=== PATIENT | male | born 1965 | race Caucasian/White ===

== ENCOUNTER 2023-11-06 13:05 | Inpatient (IN) | payer OTHER ==
[~2023-11-06] VITALS: Ht 188 cm; Wt 154.0 kg
[2023-11-06] MEDS ORDERED: BACTRIM DS TAB1 EACH PO (13:27)
[2023-11-06] MEDS ORDERED: ELIQUIS5 MG PO (13:28)
[2023-11-06] MEDS ORDERED: AMOX TR-K CLV1 EAC1 PO (13:28)
[2023-11-06] MEDS ORDERED: METFORMIN HCL1000 M1 PO (13:28)
[2023-11-06] MEDS ORDERED: TOPROL XL50 MG PO (13:30)
[2023-11-06] MEDS ORDERED: ZESTRIL20 MG PO (13:30)
[2023-11-06] MEDS ORDERED: LIPITOR40 MG PO (13:30)
[2023-11-06] MEDS ORDERED: LEVOTHYROXINE50 MC1 PO (13:31)
[2023-11-06 14:19] LABS: HEMATOCRIT 40.1 % (35.0-50.0); HEMOGLOBIN 13.6 g/dL (12.0-18.0); MCH 30.2 (27-36); MCHC 33.9 g/dl (30-36); MCV 89.1 fl (81-99); PLATELET COUNT 242 K/uL (140-440)
[2023-11-06 14:33] LABS: BANDS, MANUAL DIFF 1; BASOPHILS, MANUAL DIFF 1; LYMPHOCYTES, MANUAL DIFF 5; MONOCYTES, MANUAL DIFF 5; NEUTROPHILS, MANUAL DIFF 88
[2023-11-06 14:38] LABS: ALBUMIN 2.5 g/dL (3.4-5.0); ALBUMIN/GLOBULIN RATIO 0.47 (1.1-2.4); ANION GAP 11.1 (7-21); BILIRUBIN, TOTAL 0.5 ng/dL (0.2-1.0); BUN/CREATININE RATIO 18.1 (6.0-28.6); CALCIUM 9.3 mg/dL (8.5-10.1); CREATININE, SERUM 1.16 mg/dL (0.70-1.30); POTASSIUM 3.1 mmol/L (3.5-5.1); PROTEIN, TOTAL 7.8 g/dL (6.4-8.2)
[2023-11-06 14:40] LABS: LACTIC ACID, BLOOD 1.6 mmol/L (0.4-2.0)
--- NOTE | 2023-11-06 16:19 | NUR ---
PT ARRIVED FROM ER BY STRETCHER, PT ABLE TO STAND AND TRANSFER SELF TO BE. PT REPORTS LEFT FOOT IS VERY PAINFUL WITH ACTIVITY/AMBULATION. PT BMAT LEVEL 3 STAND BY ASSIST FOR LINE AND TUBE MAGEMENT. PT ALERT AND OREITNED TO ALL. PT REPORTS 2/10 PAIN IN LEFT FOOT THAT INCREASES WITH ACTIVITY AND "OCCATIONAL ZINGS." SEE MAR FOR MEDICATION GIVEN. IV WNL, NO S/S OF PHLEBITIS PRESENT. IV FLUIDS STARTED (SEE MAR). LUNG SOUNDS CLEAR. HEART TONES REGULAR. 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 PT DENIES CHEST PAIN OR PRESSURE AT THIS TIME. LEFT LOWER EXTREMITY WARM TO TOUCH AND RED WITH REDNESS OUTLINE. REDNESS REMAINS WITHIN OUTLINESD AREA AT THIS TIME. LEFT FOOT SHOWS +2 PITTING EDEMA. LEG VERY PAINFUL WITH EVEN THE SLIGHTEST TOUCH. TWO LARGE BLOOD BLISTERS SEEN IN LATERAL PART OF TOES, PHOTOGRAPHS TAKEN. PT IS UNABLE TO IDENTIFY TOES THAT ARE TOUCHED BUT IS ABLE TO IDENTIFY BOTTOM OF FOOT WHEN TOUCHED. PEDIAL AND TIBIAL PULSES FOUND WITH DOPPLER TO LEFT SIDE. RIGHT PEDIAL AND TIBIAL PULSES WNL, CAN BE FELT. CAPILLARY REFILL 4 SECONDS TO BILATERA FEET. SMALL AMOUNTS OF SEROUS ANGUINOUS FLUID LEAKING FROM BLISTERS. PT REPORTS HIS LAST BOWEL MOVEMENT WAS 4-5 DAYS AGO. PT REQUESTS STOOL SOFTENERS, ORDERED AND GIVEN (SEE MAR). PT REPROTS FEELING CHILLY, WARM BLANKETS PROVIDED. S/S OF INFECTION REVEIWED WITH PT. PT DENIES ADDITIONAL REQUESTS OR COMPLAINTS. ORAL HYDRATION ENCROUAGED. CALL LIGHT WITHIN REACH. BED RAILS UP.
[2023-11-06 16:24] VITALS: BP 154/107
--- NOTE | 2023-11-06 17:43 | NUR ---
PTS TEMPERATURE FOUND TO BE 100.6. DR WINKLER CALLED AND UPDATED. NO NEW ORDERS AT THIS TIME.
[2023-11-06 17:57] VITALS: BP 146/73
--- NOTE | 2023-11-06 18:33 | NUR ---
THIS RN TO ROOM TO REASSESS TEMPERATURE. TEMPERATURE NOW 98.9. PT REPORTS HE IS STARTING TO "FEEL HOT." PT REPROTS 2/10 PAIN IN LEFT FOOT. PT DENIES NEED FOR PAIN MEDICATION STATING "I'M NOT GETTING THOSE TWINGES RIGHT NOW." ICE WATER REFILLED. CALL LIGHT WITHIN REACH. PO HYDRATION ENCOURAGED. NO ADDITIONAL REQUESTS OR COMPLAINTS AT THIS TIME.
--- NOTE | 2023-11-06 19:15 | NUR ---
REPORT RECIEVED FROM DAPHNE GALINDO. BOARD UPDATED. pt RESTING IN THE BED. NO NEEDS AT THIS THIS TIME. CALL LIGHT WITHIN REACH.
--- NOTE | 2023-11-06 20:13 | NUR ---
PT UP TO BR TO WITH FWW AND SBA TO VOID 350 ML CONCENTRATED URINE. GAIT STEADY. BACK TO BED, RENE WELL. REPORTS PAIN TOLERABLE WITH ACTIVITY. LLE ELEVATED ON PILLOWS. NO FURTHER NEEDS.
[2023-11-06 21:28] VITALS: BP 138/71
--- NOTE | 2023-11-06 21:30 | NUR ---
ASSESSMENT AND VITAL SIGNS DONE. IV SITE ASSESSED, WNL. PEDAL PULSES FOUND VIA DOPLER. SCHEDULED MEDICATION ADMINISTERED, SEE JAN. TEMP ELEVATED, DR. WINKLER CALLED. NEW ORDERS PLACED FOR PRN MOTRIN AND IV ABX X2. pt K+ 3.1, MD WINKLER PLACED ORDER FOR IV K+ REPLACEMENT, SEE JAN.
[2023-11-07 00:44] VITALS: BP 139/84
--- NOTE | 2023-11-07 02:19 | NUR ---
pt RESTING IN BED UP TO BR. SBA WITH FWW. pt BACK TO BED. CALL LIGHT WITHIN REACH.
--- NOTE | 2023-11-07 04:35 | NUR ---
IV PUMP ALARMING. ISSUE RESOLVED. COFFEE PROVIDED PER REQUEST. NO FURTHER NEEDS.
[2023-11-07 05:13] VITALS: BP 133/81
--- NOTE | 2023-11-07 05:15 | NUR ---
ASSESSMENT AND VITAL SIGNS DONE. REDNESS WITHIN LINES. SCHEDULED MEDICATION ADMINISTERED. CALL LIGHT WITHIN REACH. BLISTERS INTACT. PATIENT DENIES ANY NEEDS AT THIS TIME.
[2023-11-07 05:29] LABS: BASOPHILS 0.8 % (0-2); EOSINOPHILS 2.5 % (0-6); HEMOGLOBIN 12.5 g/dL (12.0-18.0); LYMPHOCYTES 11.6 % (24-44); MCHC 33.9 g/dl (30-36); MCV 88.6 fl (81-99); MONOCYTES 4.7 % (0-12); NEUTROPHILS 80.4 % (39-80); PLATELET COUNT 230 K/uL (140-440); RBC 4.17 M/ul (4.3-5.7); RDW 14.9 (10.5-15.0)
[2023-11-07 05:42] LABS: ALBUMIN 2.1 g/dL (3.4-5.0); ALBUMIN/GLOBULIN RATIO 0.43 (1.1-2.4); ANION GAP 13.3 (7-21); BILIRUBIN, TOTAL 0.5 ng/dL (0.2-1.0); BUN/CREATININE RATIO 21.34 (6.0-28.6); CALCIUM 8.6 mg/dL (8.5-10.1); CREATININE, SERUM 0.89 mg/dL (0.70-1.30); MAGNESIUM 1.7 mg/dL (1.8-2.4); POTASSIUM 3.3 mmol/L (3.5-5.1)
--- NOTE | 2023-11-07 06:30 | NUR ---
SBA PATIENT IS BACK FROM BATHROOM. PATIENT'S FOOT BLISTER OPENED AND HAD BLOOD SPOTS ON THE FLOOR AND WIPED WITH HASSAN WIPES BY THIS HOURLY SIGN LANGUAGE INTERPRETER. DENIES FURTHER NEEDS AT THIS TIME. PRIMARY RN NOTIFIED.
--- NOTE | 2023-11-07 06:50 | NUR ---
MEDICAL APPLIANCE MAKER REPORTS TO THIS RN THAT PT WAS UP TO RESTROOM AND FOOT WOUND STARTED LEAKING. THIS RN TO ROOM. SMALL CALLUS ON LATERAL PAD OF LEFT FOOT LOOSE AND LEAKING YELLOW READ FLUID. PT CURRENTLY RESTING ON RIGHT SIDE IN BED. FOOT PLACED ON A PILLOW WITH CHUX UNDERNEATH. PT REPORTS PAIN REMAINS WELL CONTROLLED AND DENIES NEED FOR PAIN MEDICATION. NOTED IN DR CHAUDHARI NOTED THAT HE WOULD LIKE A PODIATRY CONSULTATION. ORDER PLACED. CHARGE NURSE KARINA. PT DENIES ADDITIONAL REQUESTS OR COMPLAINTS. CALL LIGHT WITHIN REACH. BED RAILS UP. PT REPORTS HE WOULD LIKE TO GO BACK TO SLEEP.
--- NOTE | 2023-11-07 07:40 | NUR ---
RECIEVED REPORT FROM JOSIE REYES. ASSUMING CARE OF PT WITH JOSIE SERNA.
--- NOTE | 2023-11-07 07:45 | NUR ---
This BIOFUELS PRODUCTION ASSOCIATE assumed care for this PT from mini shifter BIOFUELS PRODUCTION ASSOCIATE. BG obtained. PT denies any assistance at this time.
--- NOTE | 2023-11-07 07:59 | NUR ---
REPORT RECEIVED FROM JOSIE RAUSCH. PT RESTING IN BED ON LEFT SIDE WITH EYES CLOSED. RESPIRATIONS EVEN AND UNLABORED. PT ALLOWED TO REST. CALL LIGHT WITHIN REACH. BED RAILS UP. ANASTACIA GALINDO ASSUMING CARE OF PT WITH ASSISTANCE FROM THIS RN.
--- NOTE | 2023-11-07 08:10 | NUR ---
CALL TO PODIATRY TO LET THEM KNOW THAT PATIENT HAS A CONSULT FOR DIABETIC FOOT INFECTION.
[2023-11-07] MEDS ORDERED: AMOX TR-K CLV1 EAC1 PO (09:20)
[2023-11-07] MEDS ORDERED: TRAMADOL HCL50 MG PO (09:21)
[2023-11-07] MEDS ORDERED: SULFAMETHOXAZO1 EAC1 PO (09:21)
[2023-11-07] MEDS ORDERED: LEVOTHYROXINE50 MCG PO (09:22)
[2023-11-07] MEDS ORDERED: METFORMIN HCL500 M1 PO (09:28)
[2023-11-07] MEDS ORDERED: LISINOPRIL-HCT1 EACH PO (09:28)
[2023-11-07] MEDS ORDERED: METOPROLOL SUCC25 MG PO (09:29)
--- NOTE | 2023-11-07 09:45 | NUR ---
PT SITTING UP IN BED, HAS FINISHED BREAKFAST. PT STATES PAIN IS 4.5/10 IN HIS FOOT AT THIS TIME, REQUESTS PAIN MEDICATION, GIVEN. DOPPLER USED FOR FINDING PULSE IN LLE. EDEMA IN LLE REMAINS 2+ WITH REDNESS. PT UNABLE TO IDENTIFY LOCATION OF TOUCH ON LEFT FOOT/TOES. OPEN BLISTER ON BOTTOM OF LEFT FOOT, DRAINING SCANT AMOUNT OF SEROSANGUINOUS FLUID. BLISTER ON TOP OF LEFT FOOT INTACT, DARK RED FLUID PRESENT INSIDE. REDNESS ON LLE RECEDING FROM MARKED AREA. PT STATES HE HAS BEEN "CONSTIPATED" FOR A "FEW DAYS", [place] AND SENNA GIVEN. PT TOLERATING 60G CARB DIET, STATES HE HAS HAD "NOT VERY MUCH OF AN APPETITE SOMETIMES" FOR THE LAST "COUPLE MONTHS". PT STATES NO FURTHER NEEDS AT THIS TIME, CALL LIGHT WITHIN REACH, BED RAILS UP.
[2023-11-07 10:04] VITALS: BP 142/71
--- NOTE | 2023-11-07 10:35 | NUR ---
THIS RN TO ROOM TO CHECK ON PT. PT RESTING IN BED, REPORTS 3/10 PAIN IN LEFT FOOT. PT DENIES NEED FOR ADDITIONAL PAIN MEDICATION. PT WATCHING VIDEOS ON PHONE. NO ADDITIONAL REQUESTS OR COMPLAINTS. CALL LIGHT WITHIN REACH. BED RAILSUP.
--- NOTE | 2023-11-07 11:27 | NUR ---
PT USES CALL LIGHT, IV PUMP ALARMING, PT STATES NEED TO USE RESTROOM. EDUCATION ON NOT WEIGHT BEARING ON LLE AND USING WALKER, PT REFUSES TO USE WALKER, STATES "I WILL TRY TO KEEP WEIGHT OFF OF IT". PT UP TO RESTROOM, DARK RED DRAINAGE WITH ODOR FROM FOOT WHILE PT WALKS. PT BACK TO BED AFTER RESTROOM, REFUSES TO GET UP TO CHAIR AT THIS TIME. PT STATES NO FURTHER NEEDS AT THIS TIME, CALL LIGHT WITHIN REACH, BED RAILS UP.
--- NOTE | 2023-11-07 12:12 | NUR ---
INTO SEE PATIENT, PATIENT AWAKE WATCHING TV. PATIENT STATES HE LIVES IN AN APARTMENT WITH HIS AND TWO SON. PATIENT DOES HAVE 10-12 STEPS LEADING INTO HIS APARTMENT, BUT BELIEVES HE WILL BE ABLE TO MANAGE AT DISCHARGE. PATIENT DOES NOT REQUIRE ANY DME AND DOES NOT HAVE ANY CONCERNS ABOUT RETURNING HOME. PATIENT DECLINES FINANCIAL NEEDS. DEMOGRAPHIC INFORMATION REVIEWED. PATIENT MAILING ADDRESS AND PCP UPDATED, EMAIL SENT TO ADMITTING. ADVISED PATIENT CASE MANAGEMENT WILL CONTINUE TO VISIT HIM DURING HIS STAY.
--- NOTE | 2023-11-07 12:25 | NUR ---
PT SITTING UP IN BED EATING LUNCH. PT STATES PAIN IS 4/10 AND WORSENING, REQUESTS PRN PAIN MEDICATION, GIVEN. PT REQUESTS ADDITIONAL MILK, GIVEN. CALL LIGHT WITHIN REACH, BED RAILS UP.
[2023-11-07 13:28] VITALS: BP 151/84
--- NOTE | 2023-11-07 13:40 | NUR ---
THIS RN TO ROOM TO CHECK ON PT. PT RESTING IN BED, PT REPORTS 3/10 PAIN AND DENIES NEED FOR PAIN MEDICAITON NO ADDITIONAL REQUESTS OR COMPLAINTS. CALL ADRI CAPUTO.
--- NOTE | 2023-11-07 14:31 | NUR ---
UR NOTE MCG CELLULITIS (ISC) INPATIENT 11/06/23 MET CLINICAL INDICATIONS FOR ADMISSION TO INPATIENT CARE GL DAY 1
--- NOTE | 2023-11-07 14:36 | NUR ---
PT CALL LIGHT ON. PT REQUESTS A MICHELLE SALINAS AND "SOMETHING FOR PAIN." PT REPORTS 3/10 PAIN IN LEFT FOOT AT THIS TIME, SEE MAR FOR MEDICATION GIVEN. PT VISITING WITH A FRIEND. IV ABX STARTED (SEE MAR). POTSSIUM INFUSION CONTINUES. 2ND ABX TO START AFTER FIRST COMPLETES. PT REQUESTS TO SHAVE, SHIFT BOSS TO BEDSIDE TO ASSIST PT WITH SHAVE. NO ADDITIONAL REQUESTS OR COMPLAINTS. ICE WATER REFILLED. CALL LIGHT WITHIN REACH. DIET 7-UP PROVIDED PER PT REQUEST. PTS PRIMARY RN UPDATED.
--- NOTE | 2023-11-07 14:44 | NUR ---
PT STATES PAIN IS 3/10, REQUESTS PAIN MEDICATION, GIVEN. REDNESS CONTINUES TO RECEED FROM MARKINGS ON LLE, PT CONTINUES TO NOT BE ABLE TO NAME WHICH TOES/PARTS OF FOOT ARE BEING TOUCH ON LEFT FOOT. DRAINAGE PRESENT FROM BLISTER ON TOP OF LEFT FOOT, DARK RED WITH ODOR. BLISTER ON LATERAL BOTTOM LEFT FOOT DRY. PT STATES NO FURTHER NEEDS AT THIS TIME, CALL LIGHT WITHIN REACH, BED RAILS UP, FAMILY AT THE BEDSIDE.
--- NOTE | 2023-11-07 15:55 | NUR ---
HOURLY ROUNDING: PT RESTING IN BED VISITING WITH FAMILY. IV ABX GIVEN. PT REQUESTS A NITCOTENE LYNNETTEE, PROVIDED. EDUCATION DONE WITH PT REGRADING HOW TO USE WALKER TO KEEP WEIGHT OFF OF HIS LEFT FOOT. PT VERBALIZES UNDERSTANDING AND STATES "I CAN DO THAT." PT REPORTS 6/10 PAIN STATING THAT PAIN IS WORSE BECUASE HE WAS JUST UP TO SHAVE AND HAD WEIGHT ON HIS FOOT. PT DENIES NEED FOR ADDITIONAL PAIN MEDICATION. NO ADDITIONAL REQUESTS OR COMPLAINTS. CALL LIGHT WITHIN REACH. BED RAILS UP.
--- NOTE | 2023-11-07 16:45 | NUR ---
PT HERE FOR DIABETIC FOOT INFECTION. PT AMBULATING TO RESTROOM WITH SBA AND LINE AND TUBE MANAGEMENT, EDUCATION ON NOT PUTTING WEIGHT ON LEFT FOOT AND ON USING THE FWW, PAIN REFUSES AND STATES "I WILL TRY TO NOT PUT WEIGHT ON IT". PT TOLERATING 60G CARB DIET WELL, STATES HE HAS HAD DECREASED APPETITE "FOR A COUPLE MONTHS". LLE PULSES FOUND WITH DOPPLER. BLISTER ON BOTTOM OF L FOOT DRY TODAY, BLISTER ON TOP OF L FOOT DRAINING DARK RED, ODOROUS FLUID THROUGHOUT SHIFT, INCREASED WITH ACITIVITY. REDNESS ON LEFT LOWER LEG RECEEDING FROM MARKINGS, L FOOT CONTINUES TO BE WARM, RED, AND LLE CONTINUES TO HAVE +2 PITTING EDEMA. PT REPORTS PAIN 3-6/10 THIS SHIFT, PRN PAIN MEDICATION GIVEN. PT HAS FAMILY VISIT THIS AFTERNOON. PT USES CALL LIGHT APPROPRIATELY. VOIDING QUANTITY SUFFICIENT.
--- NOTE | 2023-11-07 17:08 | NUR ---
PT SITTING UP IN BED VISITING WITH AND SON. PT STATES PAIN IS 5/10, STATES HE WOULD LIKE PRN PAIN MEDICATION THE NEXT TIME IT IS DUE. PT STATES NO FURTHER NEEDS AT THIS TIME, CALL LIGHT WITHIN REACH, BED RAILS UP.
--- NOTE | 2023-11-07 17:20 | NUR ---
DR PATIÑO TO BEDSIDE, PERFORMING ROUGH DEBRIEDMENT, APPLYING DRESSING. BLISTER OPENED, DARK BROWN/RED, ODOROUS DRAINAGE. DR PATIÑO STATES THERE IS " TISSUE" ON LATERAL SIDE OF LEFT FOOT, PROXIMAL TO FIFTH METATARSAL. ORDERS GIVEN FOR WOUND CULTURES, ENTERED, REPEAT BACK PERFORMED. PICTURES AND MEASUREMENTS OF WOUNDS TAKEN. DRESSING APPLIED, ORDERS FOR DRESSING CHANGES GIVEN BY DR PATIÑO, ENTERED, REPEAT BACK PERFORMED. PICTURES OF WOUNDS TAKEN, SEE COMPLEX WOUND ASSESSMENT. LLE ELEVATED ON PILLOW. PT STATES PAIN BECOMES NOT TOLERABLE AT 6-7/10 DURING WOUND DEBRIEDMENT, IV PAIN MEDICATION ORDERED, GIVEN, 0/10 POST DRESSING CHANGE. PT SITTING UP IN BED TO EAT DINNER, STATES NO FURTHER NEEDS AT THIS TIME, CALL LIGHT WITHIN REACH, BED RAILS UP.
--- NOTE | 2023-11-07 18:07 | NUR ---
PT SITTING UP IN BED FINISHING DINNER, STATES NO NEEDS AT THIS TIME, CALL LIGHT WITHIN REACH, BED RAILS UP. PT DENIES PAIN AT THIS TIME.
[2023-11-07 18:18] VITALS: BP 130/79
--- NOTE | 2023-11-07 18:41 | NUR ---
PT CALL LIGHT ON. PT REQUESTS A NICOTENE LOZANGE AND PAIN MEDICATION. SEE MAR FOR MEDICATION GIVEN. POST OP SHOE AT BEDSIDE. PT EDUCATION DONE REGARDING AMBULATION. PT VERBALIZES UNDERSTANDING. IMPORTANCE OF BLOOD SUGAR CONTROL ALSO REVIEWED WITH PT. PT STATES "ILL START WATCHING THOSE." PT DENIES ADDITIONAL REQUESTS OR COMPLAINTS. CALL LIGHT WITHIN REACH. BED RAILS UP.
--- NOTE | 2023-11-07 19:15 | NUR ---
REPORT RECIEVED FROM DAPHNE GALINDO AND ANASTACIA GALINDO. BOARD UPDATED. NO NEEDS AT THIS TIME. CALL LIGHT IN REACH.
--- NOTE | 2023-11-07 19:50 | NUR ---
DR. PATIÑO UPDATED LAB NOT ABLE TO RUN GRAM STAIN SWAB. TELEPHONE ORDERS VERIFIED WITH READBACK METHOD TO NOT DO AN ADDITIONAL SWAB AND TO WAIT FOR CULTURE AND SENSITIVITIES.
[2023-11-07 20:37] VITALS: BP 145/82
--- NOTE | 2023-11-07 20:53 | NUR ---
ASSESSMENT AND VITAL SIGNS DONE. CBG DONE. SS INSULIN ADMINISTERED. SCHEDULED MEDS ADMINISTERED, SEE MAR. pt UP TO USE URINAL, SBA/IND AT SIDE OF BED. pt C/O 04/30 PAIN/ PRN PAIN MEDS ADMINISTERED. REDNESS WITHIN BOARDERS. CALL LIGHT WITHIN REACH. NO OTHER NEEDS AT THIS TIME
--- NOTE | 2023-11-07 23:22 | NUR ---
IV ALARMING. pt RESTING IN THE BED. NO NEEDS AT THIS TIME. CALL LIGHT IN REACH. RLE COVERED WITH BANDAGE.
--- NOTE | 2023-11-08 00:46 | NUR ---
pt RESTING IN BED WITH EYES CLOSED. RESP OBSERVED, EVEN AND UNLABORED. CALL LIGHT IN REACH. DRESSING CDI
--- NOTE | 2023-11-08 02:18 | NUR ---
IV ABX INFUSING, SEE MAR. pt DENIES PAIN AT THIS TIME. RLE DRESSING CDI. CALL LIGHT IN REACH. pt REQUESTS COFFEE. NO OTHER NEEDS AT THIS TIME.
--- NOTE | 2023-11-08 04:12 | NUR ---
PATIENT CALLED. BED RAIL DOWN. PATIENT USED THE URINAL. EMPTIED 550ML DARK TEA COLOR URINE. ROOM TEMP UP FROM 70 TO 72. WHITE BOARD UPDATED. NO OTHER NEEDS AT THIS TIME.
[2023-11-08 05:29] VITALS: BP 144/86
[2023-11-08 05:35] LABS: BASOPHILS 0.2 % (0-2); EOSINOPHILS 1.8 % (0-6); HEMATOCRIT 38.4 % (35.0-50.0); HEMOGLOBIN 12.7 g/dL (12.0-18.0); LYMPHOCYTES 8.3 % (24-44); MCH 29.6 (27-36); MCHC 33.2 g/dl (30-36); MCV 89.2 fl (81-99); MONOCYTES 5.2 % (0-12); NEUTROPHILS 84.5 % (39-80); PLATELET COUNT 244 K/uL (140-440); RDW 14.4 (10.5-15.0)
[2023-11-08 05:51] LABS: ALBUMIN 2.1 g/dL (3.4-5.0); ALBUMIN/GLOBULIN RATIO 0.4 (1.1-2.4); ANION GAP 14.8 (7-21); BILIRUBIN, TOTAL 0.6 ng/dL (0.2-1.0); BUN/CREATININE RATIO 17.58 (6.0-28.6); CALCIUM 8.7 mg/dL (8.5-10.1); CREATININE, SERUM 0.91 mg/dL (0.70-1.30); POTASSIUM 3.8 mmol/L (3.5-5.1); PROTEIN, TOTAL 7.4 g/dL (6.4-8.2)
--- NOTE | 2023-11-08 08:08 | NUR ---
This COLOR STRAINER assumed COLOR STRAINER cares for this PT from nightshift COLOR STRAINER. PT is currently sitting up in bed. Denies any assistance at this time. Call light within reach.
--- NOTE | 2023-11-08 08:54 | NUR ---
ASSESSMENT IS COMPLETE. PATIENT IS SITTING UP IN BED TO EAT BREAKFAST. BG IS 228 WITH 5u OF NOVOLOG PER SLIDING SCALE, ALSO 10u OF GLARGINE ONE TIME DOSE. PATIENT GIVEN MORNING MEDICATIONS. X2 NORCO GIVEN FOR 7/10 LEFT FOOT PAIN AND PREMEDICAION FOR MORNING DRESSING CHANGE. NO OTHER NEEDS NOTED AT THIS TIME.
[2023-11-08 09:21] VITALS: BP 149/77
--- NOTE | 2023-11-08 10:44 | NUR ---
DRESSING TO LEFT FOOT CHANGED: WOUNDS CLEANSED WITH CLORHEXADINE, WOUND CLEANSER. WOUNDS PACKED WITH IODOSORB, COVERED WITH XEROFORM, GUAZE, KERLEX, COBAN AND STOCKINGNETTE. PATIENT TOLERATED WELL, REPORTED THAT HIS PAIN WAS 2/10 POST DRESSING CHANGE.
--- NOTE | 2023-11-08 11:07 | NUR ---
MS OROZCO. PT RECEIVING NURSING CARE. NO VISIT. PROVIDED SILENT PRAYER.
--- NOTE | 2023-11-08 12:28 | NUR ---
PATIENT IS SITTING UP IN BED FOR LUNCH. PATIENT GIVEN 5 UNITS OF NOVOLOG FOR BLOOD GLUCOSE OF 262
[2023-11-08 13:54] VITALS: BP 137/80
--- NOTE | 2023-11-08 14:08 | NUR ---
IV FLAGYL INFUSING FOR 30 MINUTES, TO BE FOLLOWED BY 4 HOUR CEFAPIME. PATIENT IS RESTING IN BED, DENIES OTHER NEEDS.
--- NOTE | 2023-11-08 15:46 | NUR ---
PATIENT GIVEN 2 NORCO FOR 5/10 LEFT FOOT/NERVE PAIN. NICOTINE LOZENGE PROVIDED WELL. PATIENT IS OTHERWISE RESTING IN BED.
--- NOTE | 2023-11-08 16:30 | NUR ---
PATIENT IS RESTING IN BED, DENIES ANY NEEDS.
[2023-11-08 17:38] VITALS: BP 154/94
--- NOTE | 2023-11-08 18:46 | NUR ---
DR. PATIÑO IN TO DO FURTHER DEBRIDEMENT TO TOP OF LEFT FOOT, SLIGHT DEBRIDEMENT TO LATERAL FOOT. PATIENT TOLERATED WELL. NEW PICTURES TO CHART. DR. PATIÑO REDRESSED LEFT FOOT.
--- NOTE | 2023-11-08 19:15 | NUR ---
REPORT RECIEVED FROM IAN GALINDO. pt RESTING IN BED. BOARD UPDATED. PRN NICOTINE LOZENGE REQUESTED, SEE MAR. NO OTHER NEEDS AT THIS TIME. CALL LIGHT IN REACH. LLE DRESSING CDI.
--- NOTE | 2023-11-08 19:56 | NUR ---
PT. CALLED NURSES STATION REQUESTING ASSISTANCE. PT. BED ADJUSTED FOR PT. TO USE URINAL AT BED SIDE. CALL LIGHT LEFT WITHIN REACH. NO OTHER NEEDS AT THIS TIME.
[2023-11-08 20:36] VITALS: BP 172/85
--- NOTE | 2023-11-08 20:58 | NUR ---
ASSESSMENT AND VITAL SIGNS DONE. pt TEMP ELEVATED. MD WALSH CALLED. STATED TO GIVE TYLENOL AND CHECK TEMP IN ONE HOUR. PRN TYLENOL ADMINISTERED. WATER REFRESHED. DRESSING CDI. REDNESS WITHIN BOUNDRIES. NO OTHER NEEDS AT THIS TIME. CALL LIGHT WITHIN REACH. IV ABX INFUSING, SEE MAR. SCHEDULED MEDS ADMINISTERED, SEE JAN.
--- NOTE | 2023-11-08 21:57 | NUR ---
TEMP. TAKEN AGAIN AND IN NORMAL RANGE. RN NOTIFIED. PT. REQUESTED NORCO AND NICOTINE LOSENGES, RN NOTIFIED. CALL LIGHT LEFT WITHIN REACH. NO OTHER NEEDS AT THIS TIME.
--- NOTE | 2023-11-08 22:17 | NUR ---
PT REPORTS LEFT FOOT PAIN 05/30. PRN FOR PAIN AND NICOTINE ADMIN PER EMAR. NO FURTHER NEEDS.
--- NOTE | 2023-11-09 00:15 | NUR ---
pt IS SITTING IN BED. IV ABX INFUSING. pt DENIES ANY NEEDS AT THIS TIME. CALL LIGHT WITHIN REACH.
--- NOTE | 2023-11-09 01:55 | NUR ---
IV ABX INFUSING, SEE MAR. NEW BAG OF IVF INFUSING. pt DENIES ANY NEEDS AT THIS TIME. ASSESSMENT DONE. CALL LIGHT WITHIN REACH.
--- NOTE | 2023-11-09 04:24 | NUR ---
pt RESTING IN BED WITH EYES CLOSED. RR EVEN AND UNLABORED. CALL LIGHT IN REACH.
[2023-11-09 05:50] VITALS: BP 156/95
--- NOTE | 2023-11-09 06:00 | NUR ---
IV ABX INFUSING, SEE MAR. pt DENIES ANY NEEDS AT THIS TIME. VITAL SIGNS DONE. pt RESTING IN THE BED. CALL LIGHT WITHIN REACH. MELI GALLARDO.
--- NOTE | 2023-11-09 07:45 | NUR ---
Got report from awake overnight monitor nurse. Into check on patient. Patient up to use the restroom as a SBA and walking boot. 600 urine out.
--- NOTE | 2023-11-09 08:14 | NUR ---
IV flushed and working, antibiotics started on patient. Patient currently watching tv on his phone. Patient dies any other cares at this time. Call light within reach.
[2023-11-09 09:19] VITALS: BP 147/84
--- NOTE | 2023-11-09 10:29 | NUR ---
MS ROUNDS. 15 MINUTES. PT STATED HE WAS TIRED SO SHORT VISIT. PROVIDED PRAYER.
--- NOTE | 2023-11-09 11:17 | NUR ---
Dressing change done on left foot. Today is my first day with patient, however patient states the wound is doing much better. Patient would like to take a rest. Denies any other cares. Pt was up to the restroom with no complications.
--- NOTE | 2023-11-09 11:50 | NUR ---
STUMMEL SELECTOR ADVISED NURSE THAT PATIENT WAS DRY HEAVING BUT THEN STOPPED AND SEEMED FINE. SHE TOOK HIS TEMP AND IT WAS 100. PATIENT WAS JUST GIVEN NORCO WITH TYLENOL AND HAD DRESSING CHANGE. WILL CONTINUE TO MONITOR.
--- NOTE | 2023-11-09 11:52 | NUR ---
This health services coordinator entered the pt room to obtain blood glucose. BG obtained. PT stated, "Do me a favor and check my temperature." Immediately after this pt began to dry heave. Pt spit up a small amount of thick, white fluid. PT oral temperature was 100.0 F. Pt denies any nausea after the dry heaving stopped. Nurse notified of pt change in condition. Call light within reach.
--- NOTE | 2023-11-09 12:19 | NUR ---
patient is no longer nauseated and his temperature is back at 98.3. Pt thinks it was just a response from having his dressing changed. Pt given afternoon insulin.
--- NOTE | 2023-11-09 14:25 | NUR ---
PATIENT PLAYING ON HIS PHONE EATING LUNCH. IV ANTBIOTICS ARE RUNNING. DENIES ANY OTHER CARES AT THIS TIME. PATIENT ADVISED TO USE IS CALL LIGHT IF NEEDED.
[2023-11-09 14:29] VITALS: BP 152/95
--- NOTE | 2023-11-09 14:37 | NUR ---
UR NOTE MCG CELLULITIS (ISC) INPATIENT 11/08/23 MET GL DAY 2
--- NOTE | 2023-11-09 15:32 | NUR ---
at bedside. Nurse in room. Well await and see what podiatry says when they come this evening.
[2023-11-09 18:45] VITALS: BP 143/77
[2023-11-09 20:25] VITALS: BP 129/81
--- NOTE | 2023-11-09 20:35 | NUR ---
PT IS RESTING IN BED. PT DOES COMPLAIN OF SOME PAIN AND SYMPTOMS OF FEVER. PT DOES NOT REQUIRE PAIN MEDICATION AT THIS TIME. PT ASSESSED. VITAL SIGNS OBTAINED. PT HAD NOT EATEN DINNER, HOLDING INSULIN UNTIL PT IS UP TO EATING LATER IN THE EVENING. ALL QUESITONS AND CONCERNS ADDRESSED AT THIS TIME. CALL LIGHT IS WITHIN REACH
--- NOTE | 2023-11-09 23:45 | NUR ---
PT IS REQUESTING PAIN MEDICATION AND NICOTINE LOZANGE, PRN MEDICATION GIVEN. PT DOES COMPLAIN OF PAIN IN THE LEFT FOOT. PT ALSO WAS ABLE TO EAT DINNER EARLIER AND ORDERED INSULIN IS GIVEN. ALL QUESITONS AND CONCERNS ADDRESSED AT THIS TIME.
--- NOTE | 2023-11-10 01:35 | NUR ---
PT IS RESTING IN BED, PT DOES APPEAR UNCOMFORTABLE AND IS COMPLAINING OF PAIN, PRN MEDICATION GIVEN. PT IS DETERMIND TO ATTEMPT TO SLEEP THIS MORNING. ALL QUESTIONS AND CONCERNS ADDRESSED, CALL LIGHT IS WITH IN REACH.
--- NOTE | 2023-11-10 04:37 | NUR ---
Resting, repositions self in bed, Leg dressing in place, elevated in pillows, dusky colored toes, delayed cap refill, but improving as per pt earlier. IVF infusing.
[2023-11-10 05:03] VITALS: BP 164/86
--- NOTE | 2023-11-10 05:21 | NUR ---
on room air, coop with assessment and vitals, vioided light tea colored urine. IVF infusing. diaphoretic, clean gown given 'i sweat at night. dried own skin. l leg decreaed redness, still edematous, dressing in place, leg elevated in pillows. Nicotine lozenger given on requests . Nicotine patch left back. no c/o pain.
--- NOTE | 2023-11-10 07:42 | NUR ---
awake, watching tv, no c/o pain. ivf infusing. left leg elevated in pillows
[2023-11-10 09:59] VITALS: BP 142/86
--- NOTE | 2023-11-10 10:27 | NUR ---
sitting up in bed playing with video. no c/o pain. left leg dressing in place
--- NOTE | 2023-11-10 10:42 | NUR ---
pt will be getting a shower, dressing removed L foot, strong odor, dry, no changes to wound area above toes and left distal end. edema and erythema improved. medicated with 2 norco prior to dressing removal. Cooperative
--- NOTE | 2023-11-10 10:50 | NUR ---
MS ERNESTO. CURTAIN CLOSED AND LIGHTS OFF. DID NOT DISTURB. PROVIDED SILENT PRAYER.
--- NOTE | 2023-11-10 12:05 | NUR ---
PT SHOWERED, DRESSING TO LEFT OUTER FOOT CHANGED. TOLERATED WELL, WAS MEDICATED WITH 2 NORCOS EARLIER. RECEIVED 5 UNITS SS PER [id number], SITTING UP IN BED WATCHING TV.
[2023-11-10 13:35] VITALS: BP 132/70
--- NOTE | 2023-11-10 14:29 | NUR ---
in bed, watching tv and playing with phone. left foot dressing intact. IVF infusing, no c/o adverse reaction to abx. C/o L foot pain, medicated with Motrin. nicorex lozenger given on request
--- NOTE | 2023-11-10 15:29 | NUR ---
Got report from nurse Sabrina as she is leaving for the day.
--- NOTE | 2023-11-10 16:48 | NUR ---
PATIENT JUST HAD DRESSING CHANGE DONE BY PODIATRY. PATIENT IS CURRENTLY IN A LOT OF PAIN AND GETTING SHOOTING PAINS IN HIS FOOT. SEE EMAR FOR MEDICATION GIVEN.
[2023-11-10 17:51] VITALS: BP 134/81
[2023-11-10 20:49] VITALS: BP 136/82
--- NOTE | 2023-11-10 20:52 | NUR ---
PT. BS TAKEN AND DOCUMENTED. PT. VITALS AND INTAKE CHARTED APPROPRIATELY. FRESH ICE WATER AND DIET SPRITE PROVIDED. CALL LIGHT LEFT WITHIN REACH. ROOM TIDIED AND TRASH CANS EMPTIED. NO OTHER NEEDS AT THIS TIME.
--- NOTE | 2023-11-10 21:34 | NUR ---
PT. CALLED NURSES STATION REQUESTING ASSISTANCE TO BATHROOM. THIS WAS PROVIDED. PT. ASSISTED BACK TO BED, IV PUMP PLUGGED BACK IN, CALL LIGHT LEFT WITHIN REACH AND OUTPUT CHARTED. NO OTHER NEEDS AT THIS TIME.
--- NOTE | 2023-11-11 03:54 | NUR ---
RN to room at pt request for nicotine lozenge. New bag of NS hung, 0200 dose of IV cefepime started. Pt resp even and unlabored, no further requests at this time.
[2023-11-11 05:19] VITALS: BP 151/81
--- NOTE | 2023-11-11 05:20 | NUR ---
PT. VITALS AND I/OS CHARTED. ROOM TIDIED, TRASH CANS EMPTIED, FRESH ICE WATER PROVIDED. CALL LIGHT LEFT WITHIN REACH. NO OTHER NEEDS AT THIS TIME.
[2023-11-11 05:32] VITALS: BP 117/53
--- NOTE | 2023-11-11 07:05 | NUR ---
Report received from Gita GALINDO, pt sitting up in bed watching tv and playing games on his phone, no c/o pain. IVF infusing LAC, dressing L foot intact
--- NOTE | 2023-11-11 09:18 | NUR ---
in bed, watchng tv, no c/o pain. CBG earlier was 244, received 5 untis SS insulin. ate breakfast. denies need for nicorette gum. nicotine patch on L arm. dressing L leg intact, dependent position. IVF infusign w/o problems, no c/o adverse reaction to abx. Pleasant and cooperative
[2023-11-11 09:25] VITALS: BP 140/87
--- NOTE | 2023-11-11 11:09 | NUR ---
UP TO BR, VOIDIED, L FOOT DRESSING INPLACE, USED ORTHO SHOE, TOLERATED WELL, IVF INFUSING. NICORETTE LOZENGER GIVEN. NO C/O PAIN. VISITING WITH FAMILY
--- NOTE | 2023-11-11 11:51 | NUR ---
UR NOTE [facility] CELLULITIS (ISC) INPATIENT 11/10/23 VARIANCE GL DAY 3
--- NOTE | 2023-11-11 12:41 | NUR ---
EATING, C/O NICOTINE CRAVINGS, LOZERGER GIVEN. NO C/O PAIN. IVF INFUSING. LEFT FOOT DRESSING IN PLACE
[2023-11-11 13:49] VITALS: BP 137/77
--- NOTE | 2023-11-11 14:10 | NUR ---
Patient alert and oriented, sitting up in bed. Watching TV. States he will likely need a shower chair at [place]. Information for [facility] provided. Denies other needs at this time.
--- NOTE | 2023-11-11 15:24 | NUR ---
SOTTONG UP IN BED, VISITING WITH FEMALE FRIEND. IVF INFUSING, NO C/O PAIN. NICOTINE LOZENGER GIVEN ON REQUESTS. [facility] GIVEN MED TEACHING DONE, STATED UNDERSTANDING. LEFT FOOT DRESSING INTACT, LEGS DEPENDENT POSITION, ENCOURAGED TO KEEP ELEVAYED
[2023-11-11 17:31] VITALS: BP 140/80
--- NOTE | 2023-11-11 17:36 | NUR ---
Dr العلي came to see pt. dressing changed by . dressing intact. pt sitting up in bed, legs elevated. IVf infusing, denies c/o pain. Nicorette gum given on request.Watchng tv
--- NOTE | 2023-11-11 18:06 | NUR ---
UP TO BRP, VOIDED, AND HAD A BM. BACK TO BED, USED ORTHO SHOW L FOOT. DRESSING INTACT. NO CHANGES. C/O 04/30 L FOOT PAIN. MEDICATED WITH MOTRIN 600MG PO. WATCHING TV AND PLAYING GAMES ONHIS PHONE. LEGS ELEVATED IN MATTRESS
[2023-11-11 19:59] VITALS: BP 146/75
--- NOTE | 2023-11-11 23:11 | NUR ---
DRESSING ASSESSMENT PER ORDERS, UNABLE TO VIEW ENTIRE FOOT. DRESSING IS CDI
[2023-11-12 05:33] LABS: BASOPHILS 0.8 % (0-2); EOSINOPHILS 0.9 % (0-6); HEMATOCRIT 37.8 % (35.0-50.0); HEMOGLOBIN 12.6 g/dL (12.0-18.0); LYMPHOCYTES 10.5 % (24-44); MCH 29.7 (27-36); MCHC 33.5 g/dl (30-36); MCV 88.7 fl (81-99); MONOCYTES 4.9 % (0-12); NEUTROPHILS 82.9 % (39-80); PLATELET COUNT 367 K/uL (140-440); RBC 4.26 M/ul (4.3-5.7); RDW 14.9 (10.5-15.0)
[2023-11-12 05:43] VITALS: BP 151/82
[2023-11-12 05:53] LABS: ALBUMIN/GLOBULIN RATIO 0.36 (1.1-2.4); ANION GAP 15.7 (7-21); BILIRUBIN, TOTAL 0.6 ng/dL (0.2-1.0); BUN/CREATININE RATIO 15.18 (6.0-28.6); CALCIUM 8.6 mg/dL (8.5-10.1); CREATININE, SERUM 0.79 mg/dL (0.70-1.30); POTASSIUM 3.7 mmol/L (3.5-5.1); PROTEIN, TOTAL 7.6 g/dL (6.4-8.2)
--- NOTE | 2023-11-12 07:10 | NUR ---
REPORT RECEIVED FROM JOSIE GRAMAJO. PT SITTING UP ON EDGE OF BED. NO NEEDS REPORTED AT THIS TIME. CALL LIGHT IN REACH.
[2023-11-12] MEDS ORDERED: CLINDAMYCIN HC300 MG PO (08:06)
[2023-11-12] MEDS ORDERED: HYDROCODON-ACE1 EA10 PO (08:08)
--- NOTE | 2023-11-12 08:41 | NUR ---
IN TO ADMINISTER MEDICATIONS, SEE MAR. PT SITTING UP IN BED AND RESPONDS WHEN ADDRESSED. PT TAKES PO MEDICAITONS WITH NO ISSUES. IV FLUSHES WNL. ASSESSMENT COMPLETE. LUNG SOUNDS CLEAR IN RUL AND CHRIS. DIMINISHED IN RLL AND LLL, OTHERWISE CLEAR. BOWEL TONES ACTIVE. PT DENIES TENDERNESS OR PAIN WITH ABD PALPATION. PT REPORTING PAIN 3/10 TO LEFT FOOT. LEFT FOOT DRESSING D/I WITH SCANT AMOUNT OF SHADOWING AROUND TOES. LEFT LEG AND FOOT EDEMA NOTED. IV FLUSHES WNL. IV REMOVED WNL, SEE VASCULAR ACCESS. PT REPORTS NO OTHER NEEDS AT THIS TIME. CALL LIGHT IN REACH.
[2023-11-12 10:08] VITALS: BP 151/81
--- NOTE | 2023-11-12 10:28 | NUR ---
IN TO GO OVER DC INSTRUCTIONS. VERBAL AND WRITTEN INSTRUCTIONS PROVIDED. PT VERBALIZES UNDERSTANDING. QUESTIONS ANSWERED. PT REPORTS HAVING A FOLLOW UP APPOINTMENT WITH DR. PATIÑO ON THE AT 1130. ENCOURGAED PT TO KEEP APPOINTMENT AND ALSO CALL FOR A FOLLOW UP APPOINTMENT WITH PCP. RX PROVIDED TO PT. PT REPORTING PAIN 7/10 IN LEFT FOOT. PRN PAIN MEDICATION ADMINISTERED, SEE MAR. PT REPORTS PTs RIDE IS NOT AVAILABLE UNTIL 1500. PT DENIES ANY OTHER NEEDS AT THIS TIME. CALL LIGHT IN REACH. PT SITTING UP IN BED.
--- NOTE | 2023-11-12 11:58 | NUR ---
IN TO ADMINISTER MEDICATION, SEE MAR. PT SITTING UP IN BED WATCHING TV. PT RESPONDS WHEN ADDRESSED. PT REPORTING PAIN 2/10. LEFT FOOT ELEVATED ON PILLOW. PT DENIES ANY OTHER NEEDS AT THIS TIME. CALL LIGHT IN REACH.
--- NOTE | 2023-11-12 12:51 | NUR ---
IN PT REQUESTING PRN NICOTINE LOZENGE. PRN LOZENGE ADMINISTERED, SEE MAR. WATER PROVIDED. PT SITTING UP IN BED WATCHING TV. PT DENIES ANY OTHER NEEDS AT THIS TIME. CALL LIGHT IN REACH.
--- NOTE | 2023-11-12 13:56 | NUR ---
IN TO ROUND ON PT. PT SITTING UP IN BED ON PHONE. PT DENIES ANY NEEDS AT THIS TIME. CALL LIGHT IN REACH.
== END 2023-11-12 14:57 | disposition home or self-care (01) | DRG 871 ==
LOC: ED 13:05 → MS 15:46
PROVIDERS: Emergency Medicine; ADMIT Family Medicine; ATTEND Internal Medicine
DX: A41.9 Sepsis, unspecified organism (principal); J18.9 Pneumonia, unspecified organism; L03.116 Cellulitis of left lower limb; I48.92 Unspecified atrial flutter; E11.628 Type 2 diabetes mellitus with other skin complications; E87.6 Hypokalemia; E83.42 Hypomagnesemia; E03.9 Hypothyroidism, unspecified; E78.00 Pure hypercholesterolemia, unspecified; F17.210 Nicotine dependence, cigarettes, uncomplicated; E11.621 Type 2 diabetes mellitus with foot ulcer; L97.529 Non-pressure chronic ulcer of other part of left foot with unspecified severity; Z79.4 Long term (current) use of insulin
CPT/HCPCS: 36415; 71045; 73630; 80053; 82553; 83605; 83735; 84100; 85025; 85060; 85651; 86140; 87040; 87070; 87075; 87205; 94640; 97110; 97116; 97161; 97165; 99284-25; A9270; J0692; J0878; J1815; J2270; J3475; J3480; J3490; J7030; J7060